=== PATIENT | female | born 1970 | race Hispanic/Latino ===

== ENCOUNTER → 2020-10-13 | Outpatient (CLI) | payer OTHER | END | disposition home or self-care (01) | LOC: RAH 11:48 | PROVIDERS: ATTEND Internal Medicine | DX: Z12.31 Encounter for screening mammogram for malignant neoplasm of breast (principal) | CPT/HCPCS: 77067 ==

== ENCOUNTER → 2021-02-09 | Outpatient (CLI) | payer OTHER | END | disposition home or self-care (01) | LOC: RAH 13:28 | PROVIDERS: ATTEND Internal Medicine | DX: Q51.28 Other and unspecified doubling of uterus (principal); R93.89 Abnormal findings on diagnostic imaging of other specified body structures; N92.6 Irregular menstruation, unspecified | CPT/HCPCS: 76856 ==

== ENCOUNTER → 2021-03-02 | Outpatient (CLI) | payer OTHER | END | disposition home or self-care (01) | LOC: RAH 15:22 | PROVIDERS: ATTEND Internal Medicine | DX: R22.40 Localized swelling, mass and lump, unspecified lower limb (principal); N92.6 Irregular menstruation, unspecified | CPT/HCPCS: 76882 ==

== ENCOUNTER → 2024-08-03 | Outpatient (CLI) | payer OTHER ==
--- NOTE | 2024-08-04 08:53 | HMCIMG ---
SCREENING MAMMOGRAM REASON: Annual Exam COMPARISON: 10/13/2020 TECHNIQUE: CC and MLO views of the bilateral breasts were performed.CAD was performed as well. FINDINGS: Parenchymal density: There are scattered areas of fibroglandular density. There are no focal mass lesions. There are no pathologic appearing calcifications. There is no evidence of architectural distortion or skin thickening. IMPRESSION: Normal screening mammogram The patient was entered into a reminder system with a target due date for their next mammogram. BI-RADS CATEGORY 1: NEGATIVE Recommend monthly self breast exam as well as annual clinical examination. A negative x-ray should not delay biopsy if a dominant or clinically suspicious mass is present, since 8-10% of cancers are not identified by mammography. Dense breasts particularly, may obscure an underlying neoplasm. Some of these may be detected clinically and therefore, clinical examination is an essential part of breast evaluation.
== END | disposition home or self-care (01) ==
LOC: RAH 12:52
PROVIDERS: ATTEND Internal Medicine
DX: Z12.31 Encounter for screening mammogram for malignant neoplasm of breast (principal); R92.323 Mammographic fibroglandular density, bilateral breasts
CPT/HCPCS: 77067